=== PATIENT | female | born 1980 | race African-American/Black ===

== ENCOUNTER 2022-04-04 04:21 | Inpatient (IN) | payer BC ==
[2022-04-02 17:33] VITALS: BMI 34.0
[2022-04-04] MEDS ORDERED: CEFAZOLIN 2 GM in DEXTROSE 5%-WATER - 100 ML IVPB ONE (10:00)
[2022-04-04] MEDS ORDERED: BUPIVACAINE HCL/PF 0.5% (5MG/ML) 10 ML VIAL ONE (11:00)
[2022-04-04] MEDS ORDERED: BUPIVACAINE LIPOSOME/PF (EXPAREL) 266 MG/20 ML VIAL ONE (11:01)
[2022-04-04] MEDS ORDERED: MIDAZOLAM HCL 2 MG/2 ML SINGLE DOSE VIAL ONE ×2 (11:02)
[2022-04-04] MEDS ORDERED: PROPOFOL 20 ML ONE ×2 (11:23→11:52)
[2022-04-04] MEDS ORDERED: SUCCINYLCHOLINE CHLORIDE 200 MG/10 ML SYRINGE ONE (11:23)
[2022-04-04] MEDS ORDERED: ROCURONIUM BROMIDE 50 MG/5 ML SYRINGE ONE (11:23)
[2022-04-04] MEDS ORDERED: ceFAZolin SODIUM 1 GM VIAL IVPB ONE (12:00)
[2022-04-04] MEDS ORDERED: DEXAMETHASONE SOD PHOSPHATE 4 MG/1 ML VIAL ONE (12:00)
[2022-04-04] MEDS ORDERED: ceFAZolin SODIUM 1 GM VIAL ONE ×2 (12:00→18:23)
[2022-04-04] MEDS ORDERED: TRANEXAMIC ACID 1000 MG/10 ML VIAL ONE (12:22)
[2022-04-04] MEDS ORDERED: KETOROLAC TROMETHAMINE 30 MG/1 ML VIAL ONE (12:59)
[2022-04-04] MEDS ORDERED: BENZOIN/ALOE VERA/STORAX/TOLU 58 ML BOTTLE ONE (13:30)
[2022-04-04] MEDS ORDERED: ONDANSETRON 4 MG/2 ML VIAL IVPUSH PRN ×2 (14:10→15:16)
[2022-04-04] MEDS ORDERED: ACETAMINOPHEN 1000 MG/100 ML BAG IVPB ONE ×3 (14:10→15:16)
[2022-04-04] MEDS ORDERED: ALBUTEROL SO4 0.083% IH SOL 2.5 MG/3 ML VIAL.NEB. NEB PRN ×2 (14:12→15:16)
[2022-04-04] MEDS ORDERED: ALBUTEROL SO4 0.083% IH SOL 2.5 MG/3 ML VIAL.NEB. NEB ONE (14:15)
[2022-04-04] MEDS ORDERED: LACTATED RINGERS SOLUTION 1,000 ML IV SCH ×2 (14:15→15:16)
[2022-04-04] MEDS ORDERED: SIMETHICONE 80 MG TAB.CHEW (FP) PO PRN (15:16)
[2022-04-04] MEDS ORDERED: oxyCODONE HCL 5 MG TABLET PO PRN ×2 (15:16)
[2022-04-04] MEDS ORDERED: BISACODYL 5 MG TABLET.DR (FP) PO PRN (15:16)
[2022-04-04] MEDS ORDERED: IBUPROFEN 800 MG/8 ML IJ IVPB ONE ×2 (15:47→15:50)
[2022-04-04] MEDS ORDERED: METHIMAZOLE 5 MG TABLET PO SCH (17:01)
[2022-04-04] MEDS ORDERED: HYDROmorphone HCl 2 MG/ML VIAL IVPB ONE (18:15)
[2022-04-04] MEDS ORDERED: DEXTROSE 5%-WATER - 50 ML IVPB ONE (18:23)
[2022-04-04] MEDS: CEFAZOLIN 1 GM in DEXTROSE 5%-WATER - 50 ML IVPB SCH (18:50)
[2022-04-04] MEDS: ACETAMINOPHEN 1000 MG/100 ML BAG IVPB SCH (21:03)
[2022-04-04] MEDS: IBUPROFEN 800 MG/8 ML IJ IVPB SCH (22:15)
[2022-04-04] MEDS: DOCUSATE SODIUM 100 MG CAPSULE (FP) PO PRN (23:37)
[2022-04-05] MEDS ORDERED: DEXTROSE 5%-WATER - 50 ML IVPB ONE (01:51)
[2022-04-05] MEDS ORDERED: ceFAZolin SODIUM 1 GM VIAL ONE (01:52)
[2022-04-05] MEDS: CEFAZOLIN 1 GM in DEXTROSE 5%-WATER - 50 ML IVPB SCH (01:55)
[2022-04-05] MEDS: ACETAMINOPHEN 1000 MG/100 ML BAG IVPB SCH ×2 (02:42→10:38)
[2022-04-05] MEDS: IBUPROFEN 800 MG/8 ML IJ IVPB SCH ×2 (05:59→13:59)
[2022-04-05 06:41] LABS: HEMATOCRIT 24.7 % (32.4-45.2); HEMOGLOBIN 7.9 GM/dL (10.7-15.3); MCH 23.5 pg (25.7-33.7); MCHC 32.2 g/dl (32.0-36.0); MEAN CELL VOLUME 73.2 fl (80-96); MEAN PLT VOLUME 7.8 fl (7.5-11.1); PLATELET COUNT 286 10^3/uL (134-434); RBC 3.37 M/mm3 (3.60-5.2); RDW 18.4 % (11.6-15.6); WHITE BLOOD COUNT 7.2 K/mm3 (4.0-10.0)
[2022-04-05] MEDS: DOCUSATE SODIUM 100 MG CAPSULE (FP) PO PRN (10:57)
[2022-04-05 14:36] VITALS: BP 123/76; PULSE 86; TEMP 99
[2022-04-05] MEDS ORDERED: IBUPROFEN 600 MG TABLET (FP) PO PRN (15:00)
[2022-04-05] MEDS ORDERED: ACETAMINOPHEN 325 MG TABLET (FP) PO PRN (15:00)
== END 2022-04-05 17:40 | disposition home or self-care (01) | DRG 743 ==
LOC: JASU-SURG 04:21 → J2C 15:16 → J3W 17:49
PROVIDERS: ADMIT Specialist; ATTEND Specialist
PROC: 0UT70ZZ Resection of Bilateral Fallopian Tubes, Open Approach (ICD-10-PCS; 2022-04-04)
PROC: 0UT20ZZ Resection of Bilateral Ovaries, Open Approach (ICD-10-PCS; 2022-04-04)
PROC: 0UT90ZZ Resection of Uterus, Open Approach (ICD-10-PCS; principal; 2022-04-04 11:00)
DX: D25.9 Leiomyoma of uterus, unspecified (principal)
CPT/HCPCS: 36415; 81025; 85027; 86850; 86900; 86901; 88302-TC; 88305-TC; 94760